=== PATIENT | female | born 1980 | race Caucasian/White ===

== ENCOUNTER → 2018-02-01 | Outpatient (CLI) | payer OTHER ==
--- NOTE | 2018-02-01 15:29 | RAD ---
Abdominal ultrasound, 02/01/2018: HISTORY: Abdominal pain with eating The gallbladder is within normal limits in size. There is no sonographic evidence of cholelithiasis. The gallbladder wall is not thickened. The common hepatic duct is of normal caliber. The visualized portions of the liver, pancreas, spleen and both kidneys show no abnormality. The abdominal aorta and inferior vena cava are unremarkable. No free fluid is evident in the abdomen. IMPRESSION: No significant abnormality is detected. Electronically signed by: Samir Guardado MD (02/01/2018 3:26 PM) [facility]
== END | disposition home or self-care (01) ==
LOC: US 08:52
PROVIDERS: ATTEND Family Medicine
DX: R10.9 Unspecified abdominal pain (principal)
CPT/HCPCS: 76700

== ENCOUNTER 2018-07-01 20:11 | Emergency (ER) | payer OTHER ==
[~2018-07-01] VITALS: Ht 157.5 cm; Wt 63.8 kg
--- NOTE | 2018-07-01 20:43 | PHYS DOC ---
Past History Past Medical History: Migraines Past Surgical History: Hysterectomy, Other Alcohol Use: Occasionally Drug Use: None Adult General Chief Complaint Chief Complaint: HEADACHE HPI HPI 38-year-old female presents with one-week history of cough and sore throat. The patient has had a cough with sore throat for at least the last 1 week. She states that last 2 days and has gotten worse. She now has diffuse body aches and upper back pain from coughing. She tried several iglf-rhl-lylavhr remedies. She has not measured a fever at home. She denies chills. She was recently out of state and just came back. She denies nausea, vomiting, diarrhea, or constipation. She denies dysuria or urinary frequency. Review of Systems Review of Systems Constitutional: Denies fever or chills [] Eyes: Denies change in visual acuity, redness, or eye pain [] HENT: Nasal congestion with sore throat [] Respiratory: Cough without shortness of breath [] Cardiovascular: No additional information not addressed in HPI [] GI: Denies abdominal pain, nausea, vomiting, bloody stools or diarrhea [] : Denies dysuria or hematuria [] Musculoskeletal: Back pain[] Integument: Denies rash or skin lesions [] Neurologic: Denies headache, focal weakness or sensory changes [] Endocrine: Denies polyuria or polydipsia [] All other systems were reviewed and found to be within normal limits, except as documented in this note. Allergies Allergies Allergies Coded Allergies Type Severity Reaction Last Updated Verified No Known Drug Allergies 07/01/18 No Physical Exam Physical Exam Constitutional: Well developed, well nourished, no acute distress, non-toxic appearance. [] HENT: Normocephalic, atraumatic, bilateral external ears normal, oropharynx erythematous without exudates, nose normal. [] Eyes: PERRLA, EOMI, conjunctiva normal, no discharge. [] Neck: Normal range of motion, no tenderness, supple, no stridor. [] Cardiovascular:Heart rate regular rhythm, no murmur [] Lungs & Thorax: Bilateral breath sounds clear to auscultation. Coughing [] Abdomen: Bowel sounds normal, soft, no tenderness, no masses, no pulsatile masses. [] Skin: Warm, dry, no erythema, no rash. [] Back: No tenderness, no CVA tenderness. [] Extremities: No tenderness, no cyanosis, no clubbing, ROM intact, no edema. [] Neurologic: Alert and oriented X 3, normal motor function, normal sensory function, no focal deficits noted. [] Psychologic: Affect normal, judgement normal, mood normal. [] Current Patient Data Vital Signs Vital Signs Date Time Temp Pulse Resp B/P (MAP) Pulse Ox O2 Delivery O2 Flow Rate FiO2 07/01/18 20:13 99.3 88 18 99 Room Air EKG EKG [] Radiology/Procedures Radiology/Procedures [] Impressions: PA and lateral chest radiographs 07/01/2018 CLINICAL HISTORY: Chest discomfort and cough. PA and lateral digital radiographs of the chest were obtained. No previous studies are available for comparison. The cardiac and mediastinal silhouettes are within normal limits in size and configuration. No acute pulmonary infiltrate is seen. No pleural effusion or pneumothorax is noted. The osseous structures are grossly intact. IMPRESSION: No acute abnormality is seen. Electronically signed by: Edward Archibald MD (07/01/2018 9:41 PM) [facility] DICTATED AND SIGNED BY: EDWARD ARCHIBALD MD DATE: 07/01/182139 CC: SANTO VASQUEZ DO; VERO BROWNLEE DO Course & Med Decision Making Course & Med Decision Making Pertinent Labs and Imaging studies reviewed. (See chart for details) The patient's rapid strep and influenza was negative. Her chest x-ray is unremarkable. She appears to have a viral URI. She is stable for discharge at this time. [] Dragon Disclaimer Dragon Disclaimer This electronic medical record was generated, in whole or in part, using a voice recognition dictation system. Departure Departure: Referrals: VERO BROWNLEE DO (PCP) Scripts Azithromycin (AZITHROMYCIN PACKET) 1 Gm Packet 1 PACKET PO ONCE for infection, #1 PACKET Prov: SANTO VASQUEZ DO 07/01/18 Benzonatate (TESSALON PERLE) 100 Mg Capsule 1 CAP PO TID PRN for COUGH, #30 CAP Prov: SANTO VASQUEZ DO 07/01/18 SANTO VASQUEZ DO Jul 01, 2018 20:43
[2018-07-01 20:57] LABS: INFLUENZA A PATIENT NEGATIVE (NEGATIVE); INFLUENZA B PATIENT NEGATIVE (NEGATIVE)
[2018-07-01] MEDS ORDERED: BENZ100C PO (21:25)
[2018-07-01] MEDS: BENZONATATE 100 MG CAPSULE. PO ONE (21:39)
[2018-07-01] MEDS ORDERED: AZIT1PAC9 PO (21:45)
--- NOTE | 2018-07-01 21:45 | RAD ---
PA and lateral chest radiographs 07/01/2018 CLINICAL HISTORY: Chest discomfort and cough. PA and lateral digital radiographs of the chest were obtained. No previous studies are available for comparison. The cardiac and mediastinal silhouettes are within normal limits in size and configuration. No acute pulmonary infiltrate is seen. No pleural effusion or pneumothorax is noted. The osseous structures are grossly intact. IMPRESSION: No acute abnormality is seen. Electronically signed by: Edward Mast MD (07/01/2018 9:41 PM) [facility]
[2018-07-01 21:50] VITALS: BP 117/66
== END 2018-07-01 21:50 | disposition home or self-care (01) ==
LOC: ER 20:11
DX: J02.9 Acute pharyngitis, unspecified (principal); M54.6 Pain in thoracic spine; R07.89 Other chest pain; G43.909 Migraine, unspecified, not intractable, without status migrainosus
CPT/HCPCS: 71046; 87070; 87804; 87880; 99284